=== PATIENT | female | born 1965 | race African-American/Black ===

== ENCOUNTER 2025-04-06 15:32 | Emergency (ER) | payer BC ==
--- OUTSIDE RECORDS SUMMARY | 2025-04-06 15:35 | XMS REPORT | Clinical Summary ---
Author Name Unknown Organization [facility] Address [address] [place] [address] Care Team Providers Care Hat Mender Name Role Phone Janae Allen MD Primary Care Provider [phone] Cleo Tello MD Unavailable [phone] Yoandy Cordova MD Unavailable [phone] Allergies No known active allergies Medications apixaban (ELIQUIS) 5 mg tablet twice daily. 09/26/2017 Active metoprolol tartrate (LOPRESSOR) 50 mg tablet twice daily. 0 09/12/2017 Active esomeprazole (NexIUM) 40 MG capsule daily. 09/25/2017 Active albuterol (VENTOLIN HFA,PROAIR HFA) 90 mcg/puff inhaler 01/12/2022 Active benzonatate (TESSALON) 100 mg capsule 02/24/2022 Active ezetimibe (ZETIA) 10 mg tablet 02/12/2022 Active metFORMIN (GLUCOPHAGE-XR) 500 mg 24 hr tablet 1,000 mg. 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 Cancer Staging:Clinical:Stage 0(cTis (Paget), cN0, cM0, GX, ER: Not Assessed, WV: Not Assessed, HER2: Not Assessed) - Signed by Edita Kim MD on 01/21/2021 Pathologic stage from 11/16/2017:Stage Unknown(pTis (Paget), pNX, cM0, G3, ER: Not Assessed, WV: Not Assessed, HER2: Not Assessed) - Signed by Edita Kim MD on 11/16/2017 Gastroesophageal reflux disease 09/27/2017 Hypertensive disorder 09/27/2017 Dyslipidemia 01/12/2017 Multiple joint pain 01/12/2017 Lupus anticoagulant disorder 01/03/2017 Flushing 04/07/2016 H/O: pulmonary embolus 02/08/2014 Surgical History Surgery Date Site/Laterality Comments COLONOSCOPY 07/18/2011 - 07/17/2012 UPPER GASTROINTESTINAL ENDOSCOPY 07/18/2016 - 07/17/2017 TUBAL LIGATION 07/18/1994 - 07/17/1995 REDUCTION MAMMAPLASTY 07/18/1991 - 07/17/1992 Dr. 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 Relation Name Status Comments Daughter Maternal Aunt 1 Roweena Maternal Aunt 2 Yoselin Maternal Grandmother Rand Maternal Uncle [place] Mother Padma Paternal Aunt 1 Janet Paternal Aunt 2 Ti Paternal Aunt 3 Yoselin Paternal Grandmother ? Social History Tobacco Use Types Packs/Day Years Used Date Smoking Tobacco: Never Smokeless Tobacco: Never Tobacco Cessation:Ready to Q uit: Yes Alcohol Use Standard Drinks/Week Comments Yes 0 (1 standard drink = 0.6 oz pur e alcohol) Comments Unknown Sex and Gender Information Value Date Recorded Sex Assigned at Female 01/21/2022 9:06 AM CDT Legal Sex Female 9:11 AM TAKE AWAY MAN Gender Identity Female 01/21/2022 9:06 AM CDT Sexual Orientation Straight 01/21/2022 9: 06 AM CDT Obstetrics History Para Term AB IAB SAB Ectopic Multiple Livin g Live Births 3 3 3 Date Outcome GA Total Labor Labor/2nd/3rd Weight Sex Type Anes PTL Sarah A1 A5 Name Clin Para Para Para Comments Menarche 11 Parity 20 No breast feeding OCP 9 yrs Menopause in 2014 No HRT Plan of Treatment Health Maintenance Due Date Last Done Comments COVID-19 Vaccine (3 - 2024-2 6 season) 2025 08/18/2020, 07/22/2020 Influenza Vaccine (#1) 2025 9, 04/17/2018, 04/16/2017, Additional history exists Pneumococcal Vaccine: 50+ Ye ars (3 of 3 - PCV20 or PCV21) 10/09/2026 10/09/2021, 05/13/2020 Insurance [facility] PPO POS [facility] [place] PPO POS Care Teams Hat Mender Relationship Specialty Start Date End Date Janae Allen MD [address] [place] [id number] [email or web address] PCP - General Medical Oncology 09/07/18 Cleo Tello MD [address] [place] [id number] PCP - External Referring Internal Medicine 09/07/18 Yoandy Cordova MD [address] [place] [id number] [email or web address] Consulting Physician Plastic and Reconstructive Surgery 10/12/17
[2025-04-06 16:06] LABS: Absolute Lymphocytes (CBC) 1.5 K/uL (0.7-4.9); Hematocrit 42.4 % (36.0-45.0); Hemoglobin 14.2 g/dL (12.0-15.0); MCH 30.6 pg (27.0-35.0); MCHC 33.5 g/dL (32.0-36.0); MCV 91.2 fL (80-100); MPV 9.3 fL (7.6-11.3); Nucleated RBC Absolute Count 0.0 (0-0); Nucleated Red Blood Cells % 0.1 % (0-0); RBC Red Blood Cell Count 4.65 M/uL (3.86-4.86); White Blood Count 4.10 thou/uL (4.3-10.9)
[2025-04-06 16:12] LABS: PT Prothrombin Time 13.0 SECONDS (10-13.0); Protime INR 1.16
[2025-04-06 16:31] LABS: ALT/SGPT 46.0 U/L (13-56); AST/SGOT 33.0 U/L (15-37); Albumin 3.7 g/dL (3.4-5.0); Albumin/Globulin Ratio 0.9 (1.1-1.8); Alkaline Phosphatase 70.0 U/L (45-117); Anion Gap 8.6 mEq/L (5.0-15.0); BUN Blood Urea Nitrogen 17.0 mg/dL (7-18); Bilirubin Indirect, Calculated 0.2 mg/dL (0.2-0.8); Globulin 4.3 g/dL (2.3-3.5); Glucose Level 120.0 mg/dL (74-106); Magnesium 2.1 mg/dL (1.6-2.4); NT PRO-BNP 6.0 pg/mL (<125); Potassium 3.6 mEq/L (3.5-5.1); Troponin High Sensitivity 4.2 pg/mL (<58.9)
--- NOTE | 2025-04-06 17:19 | RAD REPORT ---
EXAMINATION: ONE VIEW CHEST XR CLINICAL INDICATION: CHEST PAIN TECHNIQUE: Frontal chest projection is submitted. Examination is limited by patient positioning and t echnique. COMPARISON: No prior exam. FINDINGS: The lungs are well inflated and clear. The heart is upper limit of normal in size. No displaced fract ures identified. IMPRESSION: No acute intrathoracic abnormalities.
--- NOTE | 2025-04-06 18:59 | EDPHYS ---
Physician Documentation [facility] Name: Anegla Mix Age: 60 yrs Sex: Female : 1965 Arrival Date: 04/06/2025 Time: 15:32 Bed 4 Private MD: ED Physician Chris Will HPI: 04/06 16:42 This 60 yrs old Black Female presents to ER via Ambulatory with complaints of Chest sb4 Pain. 16:42 Patient states she developed diffuse chest pain this afternoon after eating a hot dog. sb4 She states the pain radiated up to her right jaw. She states that it has slowly improved but is still lingering. She denies any prior episodes of this. Does report a history of hypertension and pulmonary emboli in which she is on antihypertensive and Eliquis daily. Denies any significant cardiac history. Historical: - Allergies: 15:43 No Known Allergies; hb - Home Meds: 15:43 Metoprolol Tartrate Oral [Active]; Hydrochlorothiazide Oral [Active]; Eliquis oral hb [Active]; - PMHx: 15:43 HTN; PE; hb - PSHx: 15:43 Tubal Ligation; Hernia Repair; hb - Immunization history:: Adult Immunizations up to date. - Infectious Disease History:: Denies. - Social history:: Smoking status: Patient denies any tobacco usage or history of. ROS: 16:42 Constitutional: Negative for fever, chills, and weight loss, sb4 16:42 Cardiovascular: Positive for chest pain, 16:42 All other systems are negative, Exam: 16:42 Constitutional: This is a well developed, well nourished patient who is awake, alert, sb4 and in no acute distress. Head/Face: Normocephalic, atraumatic. Eyes: Extra-ocular motions intact. Periorbital areas with no swelling, redness, or edema. ENT: Mucous membranes moist. Cardiovascular: Regular rate and rhythm with a normal S1 and S2. Respiratory: No increased work of breathing, no retractions or nasal flaring. Abdomen/GI: Soft, non-tender, no distension. Skin: Warm, dry with normal turgor. Normal color with no rashes, no lesions, and no evidence of cellulitis. Vital Signs: 15:42 BP 152 / 72; Pulse 91; Resp 17; Temp 97.2(TE); Pulse Ox 98% on R/A; Weight 107.05 kg; hb Height 5 ft. 7 in. ; Pain 4/10; 17:00 BP 144 / 84; Pulse 80; Resp 16 S; Pulse Ox 100% ; iw 18:00 BP 145 / 83; Pulse 81; Resp 16; Pulse Ox 99% on R/A; iw 15:42 Body Mass Index 36.96 (107.05 kg, 170.18 cm) hb 15:42 Pain Scale: Adult hb MDM: 15:44 Medical Screening Exam initiated sb4 16:43 Scoring Tools HEART Score: History: ECG: Age: Risk Factors: 1 or 2 risk factors (1), sb4 Troponin: Total Score = 3. 16:44 Special discussion: Based on the patient's history, exam, and Dx evaluation, there is sb4 no indication for emergent intervention or inpatient Tx. It is understood by the patient/guardian that if the Sx's persist or worsen they need to return immediately for re-evaluation. 16:51 Independent interpretation of the following test(s) in the Emergency Department X-Ray: sb4 My interpretation is chest xray - possible consolidation right middle lobe. 18:32 Differential diagnosis: ACS, GERD, abnormal EKG, nonspecific chest pain, anxiety. Data sb4 reviewed: vital signs, nurses notes, lab test result(s), EKG, radiologic studies, I have discussed the patient's presentation/case with the attending Emergency Department Physician; and as a result, I will discharge patient. Care significantly affected by the following chronic conditions: Hypertension. Counseling: I had a detailed discussion with the patient and/or guardian regarding the historical points, exam findings, and any diagnostic results supporting the discharge/admit diagnosis, the presence of at least one elevated blood pressure reading (>120/80) during this emergency department visit, lab results, radiology results, the need for outpatient follow up, a eye glass frame polisher, to return to the emergency department if symptoms worsen or persist or if there are any questions or concerns that arise at home. 04/06 15:47 Order name: Basic Metabolic Panel; Complete Time: 16:32 sb4 04/06 15:47 Order name: CBC with Diff; Complete Time: 16:10 sb4 04/06 15:47 Order name: LFT's; Complete Time: 16:32 sb4 04/06 15:47 Order name: Magnesium; Complete Time: 16:32 sb4 04/06 15:47 Order name: NT PRO-BNP; Complete Time: 16:32 sb4 04/06 15:47 Order name: PT-INR; Complete Time: 16:13 sb4 04/06 15:47 Order name: Troponin HS; Complete Time: 16:32 sb4 04/06 18:00 Order name: Troponin High Sensitivity; Complete Time: 18:59 sb4 04/06 15:47 Order name: XRAY Chest (1 view); Complete Time: 17:21 sb4 04/06 18:00 Order name: EKG; Complete Time: 18:00 sb4 04/06 15:47 Order name: Cardiac monitoring; Complete Time: 16:02 sb4 04/06 15:47 Order name: EKG - Nurse/Tech; Complete Time: 16:02 sb4 04/06 15:47 Order name: IV Saline Lock; Complete Time: 16:02 sb4 04/06 15:47 Order name: Labs collected and sent; Complete Time: 16:02 sb4 04/06 15:47 Order name: O2 Per Protocol; Complete Time: 16:02 sb4 04/06 15:47 Order name: O2 Sat Monitoring; Complete Time: 16:02 sb4 04/06 16:32 Order name: Misc. Order: repeat trop and ekg at 1800; Complete Time: 18:12 sb4 04/06 18:00 Order name: EKG - Nurse/Tech; Complete Time: 18:29 sb4 EC:50 Rate is 86 beats/min. Rhythm is regular, Normal Sinus Rhythm. NE interval is normal at sb4 180 msec. QRS interval is normal at 92 msec. QT interval is normal at 386 msec. No Q waves. Clinical impression: Normal ECG. Interpreted by me. Reviewed by me. 18:30 Rate is 82 beats/min. Rhythm is regular, Normal Sinus Rhythm. NE interval is normal at sb4 176 msec. QRS interval is normal at 92 msec. QT interval is normal at 380 msec. No Q waves. T waves are Normal. No ST changes noted. Clinical impression: Normal ECG. Interpreted by me. Reviewed by me. Administered Medications: No medications were administered Disposition: 04/07 07:29 Co-signature as Attending Physician, Chris Will MD I reviewed the patient's care rn provided by the Advanced Practice Provider and agree with the diagnosis and treatment plan. Disposition Summary: 04/06/25 18:59 Discharge Ordered Notes: Location: Home sb4 Problem: new sb4 Symptoms: have improved sb4 Condition: Stable sb4 Diagnosis - Chest pain, unspecified sb4 Followup: sb4 - With: Emergency Department - When: As needed - Reason: Trouble breathing, Worsening of condition Discharge Instructions: - Discharge Summary Sheet sb4 - Nonspecific Chest Pain, Adult, [id number] sb4 Forms: - Patient Portal Instructions sb4 - Leadership Thank You Letter sb4 Signatures: Dispatcher [employer] EDChris De Luna MD MD rn Baxter, Heather, RN RN hb Brown, Sophia, PA-C PAWillow sb4 Corrections: (The following items were deleted from the chart) 04/06 15:48 15:48 BASIC METABOLIC PANEL+C.LAB.BRZ ordered. EDMS EDMS 15:48 15:48 CBC+H.LAB.BRZ ordered. EDMS EDMS 15:48 15:48 HEPATIC FUNCTION+C.LAB.BRZ ordered. EDMS EDMS 15:48 15:48 MAGNESIUM+C.LAB.BRZ ordered. EDMS EDMS 15:48 15:48 PROBNP+C.LAB.BRZ ordered. EDMS EDMS 15:48 15:48 PROTIME (+INR)+COAG.LAB.BRZ ordered. EDMS EDMS 15:48 15:48 Troponin High Sensitivity+C.LAB.BRZ ordered. EDMS EDMS 15:48 15:48 Chest Single View+RAD.RAD.BRZ ordered. EDMS EDMS
--- NOTE | 2025-04-06 18:59 | ER ---
Nurse's Notes [facility] Name: Angela Mix Age: 60 yrs Sex: Female : 1965 Arrival Date: 04/06/2025 Time: 15:32 Bed 4 Private MD: Diagnosis: Chest pain, unspecified Presentation: 04/06 15:42 Chief complaint: Chest pain that radiates to right jaw x 30 mins. Coronavirus screen: hb At this time, the client does not indicate any symptoms associated with coronavirus-19. Ebola Screen: No symptoms or risks identified at this time. Initial Sepsis Screen: Does the patient meet any 2 criteria? No. Patient's initial sepsis screen is negative. Does the patient have a suspected source of infection? No. Patient's initial sepsis screen is negative. Risk Assessment: Do you want to hurt yourself or someone else? Patient reports no desire to harm self or others. Onset of symptoms was April 06, 2025. 15:42 Method Of Arrival: Ambulatory hb 15:42 Acuity: CLAUDIA 3 hb Historical: - Allergies: 15:43 No Known Allergies; hb - Home Meds: 15:43 Metoprolol Tartrate Oral [Active]; Hydrochlorothiazide Oral [Active]; Eliquis oral hb [Active]; - PMHx: 15:43 HTN; PE; hb - PSHx: 15:43 Tubal Ligation; Hernia Repair; hb - Immunization history:: Adult Immunizations up to date. - Infectious Disease History:: Denies. - Social history:: Smoking status: Patient denies any tobacco usage or history of. Screenin:38 [facility] ED Fall Risk Assessment (Adult) History of falling in the last 3 months, iw including since admission No falls in past 3 months (0 pts) Confusion or Disorientation No (0 pts) Intoxicated or Sedated No (0 pts) Impaired Gait No (0 pts) Mobility Assist Device Used No (0 pt) Altered Elimination No (0 pt) Score/Fall Risk Level 0 - 2 = Low Risk Oriented to surroundings, Maintained a safe environment. Abuse screen: Denies threats or abuse. Nutritional screening: No deficits noted. Tuberculosis screening: No symptoms or risk factors identified. Assessment: 16:40 General: Appears in no apparent distress. Behavior is calm, cooperative. Pain: iw Complains of pain in chest Pain does not radiate. Pain currently is 0 out of 10 on a pain scale. Pain began 2 hours ago. Is lasting more than 1 hour. Neuro: Level of Consciousness is awake, alert, obeys commands, Oriented to person, place, time, situation, Moves all extremities. Full function. Cardiovascular: Reports chest pain, Patient's skin is warm and dry. Respiratory: Respiratory effort is even, unlabored, Respiratory pattern is regular, symmetrical. 17:30 Reassessment: Patient appears in no apparent distress at this time. Patient and/or iw family updated on plan of care and expected duration. Pain level reassessed. Patient is alert, oriented x 3, equal unlabored respirations, skin warm/dry/pink. 18:37 Reassessment: Patient appears in no apparent distress at this time. Patient and/or iw family updated on plan of care and expected duration. Pain level reassessed. Patient is alert, oriented x 3, equal unlabored respirations, skin warm/dry/pink. Vital Signs: 15:42 BP 152 / 72; Pulse 91; Resp 17; Temp 97.2(TE); Pulse Ox 98% on R/A; Weight 107.05 kg; hb Height 5 ft. 7 in. ; Pain 4/10; 17:00 BP 144 / 84; Pulse 80; Resp 16 S; Pulse Ox 100% ; iw 18:00 BP 145 / 83; Pulse 81; Resp 16; Pulse Ox 99% on R/A; iw 15:42 Body Mass Index 36.96 (107.05 kg, 170.18 cm) hb 15:42 Pain Scale: Adult hb ED Course: 15:39 Patient arrived in ED. cj3 15:43 Triage completed. hb 15:44 Rosio Valladares PA-C is PHCP. sb4 15:44 Chris Will MD is Attending Physician. sb4 15:46 Arm band placed on. hb 16:02 Lauren Sheridan, RN is Primary Nurse. iw 16:02 Initial lab(s) drawn, by me, sent to lab. Inserted saline lock: 20 gauge in left iw antecubital area, using aseptic technique. Blood collected. Flushed with 10 mL NS. Patient maintains SpO2 saturation greater than 95% on room air. 16:56 XRAY Chest (1 view) In Process Unspecified. EDMS 17:00 Patient has correct armband on for positive identification. Client placed on continuous iw cardiac and pulse oximetry monitoring. NIBP monitoring applied. youth nutritional monitor on. 18:29 EKG done, by special procedure tech. reviewed by Rosio Valladares PA-C. ts3 19:06 No provider procedures requiring assistance completed. IV discontinued, intact, iw bleeding controlled, No redness/swelling at site. Pressure dressing applied. Administered Medications: No medications were administered Medication: 18:38 VIS not applicable for this client. iw Outcome: 18:59 Discharge ordered by MD. bailey 19:06 Discharged to home ambulatory, with family, iw 19:06 Condition: good 19:06 Discharge instructions given to patient, family, Instructed on discharge instructions, follow up and referral plans. Demonstrated understanding of instructions, follow-up care, 19:06 Patient left the ED. iw Signatures: Dispatcher [employer] EDLauren Meng, RN ZAINAB iw Radha Ferrell RN RN hb Brown, Sophia, PA-C PA-C sb4 Rossana Valdez cj3 Mariella Armijo ts3
[2025-04-06 19:10] VITALS: TEMP 97.2
[2025-04-06 19:13] VITALS: BP 145/83; O2SAT 99
== END 2025-04-06 19:06 | disposition home or self-care (01) ==
LOC: ER 15:32
DX: R07.9 Chest pain, unspecified (principal); I10 Essential (primary) hypertension; Z86.711 Personal history of pulmonary embolism; Z79.01 Long term (current) use of anticoagulants
CPT/HCPCS: 36415; 71045; 80048; 80076; 83735; 83880; 84484; 85025; 85610; 93005; 99284